=== PATIENT | female | born 1965 | race Caucasian/White ===

== ENCOUNTER 2019-10-16 08:10 | Day surgery (SDC) | payer OTHER ==
[~2019-10-16 08:10] MED LIST: Lactated Ringers 1,000 ML IV SCH
[2019-10-16] MEDS ORDERED: Versed 2 MG/2 ML Injection ONE (11:31)
[2019-10-16] MEDS ORDERED: DIPRIVAN 200 MG/20 ML IV ONE ×3 (11:31→12:38)
[2019-10-16] MEDS ORDERED: Xylocaine-Mpf 2% 5 Ml Vial ONE (12:04)
[2019-10-16] MEDS ORDERED: Lactated Ringers 1,000 ML IV ONE (12:21)
[2019-10-16 13:50] VITALS: O2SAT 100
[2019-10-16 14:03] VITALS: BP 129/81; PULSE 63
--- NOTE | 2019-10-17 10:28 | OP ---
PROCEDURE DATE/TIME: 10/16/2019 1206 PREOPERATIVE DIAGNOSIS: Screening colonoscopy. POSTOPERATIVE DIAGNOSES: 1) Colon polyps. 2) Minimal diverticulosis. 3) Minimal internal hemorrhoidal disease. PROCEDURES: 1) Colonoscopy with cold snare sigmoid polypectomy. 2) Hot snare rectal polypectomy. PROCEDURE PERFORMED BY: Gisela Diaz M.D. COMPLICATIONS: None. ESTIMATED BLOOD LOSS: Minimal. ANESTHESIA: MAC. SPECIMENS: 1) Sigmoid polyp. 2) Rectal polyp. HISTORY: This is a 53 year-old female who presents for screening colonoscopy. Risks, benefits, alternatives, H&P and consent all reviewed with her and confirmed preoperatively. DESCRIPTION OF PROCEDURE: She was then placed in left lateral decubitus position. A complete time out performed. Anesthesia induced. I first did a rectal exam. The patient had some mild internal hemorrhoidal disease. I also saw the small rectal polyps on exam at the very tip of my finger. Outside of this there were no other masses or concerns. The scope was then inserted. A small rectal polyp identified. I continued to advance the scope all the way to the level of the cecum. The scope advanced easily without issue. Cecum was identified clearly. Ileocecal valve identified clearly. Everything looked healthy here and normal. Appendiceal orifice was normal. We intubated the ileocecal valve. The immediate terminal ileum was normal. I then took a further closer look at the cecum, continued to irrigate. No abnormalities identified. The scope was then withdrawn taking a circumferential view. The ascending, transverse and descending colon were all normal. In the sigmoid there was one small polyp approximately 7 mm in size semi-pedunculated. It was removed in entirety with cold snare and retrieved in a trap. Site was hemostatic after polypectomy. She had a few very small diverticula scattered throughout the sigmoid colon and then outside of this we found a rectal polyp and no other findings. The rectal polyp was approximately 3 to 4 mm in size, semi-pedunculated. It was also taken with a snare this one we took with a hot snare. It was over nearby hemorrhoidal tissue but this plane was not traversed. There was no bleeding at all. The site looked very hemostatic. The scope was able to be completely withdrawn. The patient tolerated the procedure well. No immediate complications. She is going to be following up with me as an outpatient this is to discuss her polypectomy results. Tentative plans for colonoscopy in approximately three years due to the finding of multiple polyps. I have discussed all of the results with the family and patient personally as well.
== END 2019-10-16 14:10 | disposition home or self-care (01) ==
LOC: SDC 08:10
PROVIDERS: ATTEND Surgery
DX: Z12.11 Encounter for screening for malignant neoplasm of colon (principal); K57.30 Diverticulosis of large intestine without perforation or abscess without bleeding; D12.5 Benign neoplasm of sigmoid colon; K64.8 Other hemorrhoids; K62.1 Rectal polyp
CPT/HCPCS: 88305; J2250; J2704